=== PATIENT | female | born 1955 | race Caucasian/White ===

== ENCOUNTER → 2016-11-20 | Outpatient (CLI) | payer OTHER ==
[~2016-11-20] MED LIST: AMIT25TA9 PO; ASPI-875 PO; ATEN25TA PO; AZEL137S4 NS; CALC625T PO; ESTR1TAB24 PO; LORA10TA2 PO; PRV20T PO; [UNRECOGNIZED DRUG - CODE] PO; [UNRECOGNIZED DRUG - CODE] TOP; [UNRECOGNIZED DRUG - CODE] TP
--- OUTSIDE RECORDS SUMMARY | 2016-11-20 10:03 | XMS REPORT | Continuity of Care Document ---
Author Author [facility] Organization [facility] Address Unknown Phone Unavailable Care Team Providers Care Collet Maker Name Role Phone Martha Gomez PCP [phone] Source Comments Some departments are not documenting in the electronic medical record. If you do not see the information that you expected, contact Release of Information in the Health Information Management department at [phone] for further assistance in locating additional records.[facility] Active Allergies and Adverse Reactions Allergen Noted Date Severity Reactions Comments Aloe 10/02/2013 RASH Avocado 10/02/2013 DIARRHEA, STOMACH UPSET, NAUSEA AND VOMITING Morphine 10/02/2013 RASH Current Medications Prescription Sig. Disp. Refills Start End Date Status Date atenolol (TENORMIN) 25 mg Take 25 mg by mouth at Active tablet bedtime daily. aspirin EC 81 mg tablet Take 81 mg by mouth at Active bedtime daily. 4 weekly azelastine(+) (ASTELIN) Apply 1 Grandin to each Active 137 mcg nasal spray nostril as directed twice daily. Use in each nostril as directed loratadine(+) (ALAVERT; Take 10 mg by mouth at Active CLARITIN REDITABS) 10 mg bedtime daily. Allergy rapid dissolve tablet season estradiol (ESTRACE) 0.5 Take 0.5 mg by mouth at Active mg tablet bedtime daily. Dapsone (ACZONE) 5 % gel Apply to affected area. Active topiramate (TOPAMAX) 50 Take 1 Tab by mouth at 90 Tab 0 09/09/ Active mg tablet bedtime daily. Take with 16 25mg tab nortriptyline (PAMELOR) Take 2 Caps by mouth at 60 Cap 5 11/04/19 Active 25 mg capsule bedtime daily. 17 meloxicam (MOBIC) 15 mg Take 1 Tab by mouth 90 Tab 3 11/04/19 Active tablet daily. 17 topiramate (TOPAMAX) 25 Take 25mg tab with 50mg 90 Tab 3 11/11/19 Active mg tablet tab for total dose of 17 75mg nightly nortriptyline (PAMELOR) Take 25 mg by mouth at 11/04/19 Discontin 25 mg capsule bedtime daily. 17 ued topiramate (TOPAMAX) 25 Take 1 Tab by mouth at 30 Tab 5 06/19/20 Discontin mg tablet bedtime daily. 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 Most Recent Encounters Date Type Specialty Providers Description 11/10/2016 Refill Neurology Drake Pereyra MD 11/04/2016 Office Visit Neurology Drake Pereyra MD Migraine without aura and without status migrainosus, not intractable (Primary Dx); Chiari I malformation (HCC) 10/14/2016 Refill Neurology Drake Pereyra MD 09/09/2016 Refill Neurology Drake Pereyra MD Social History Tobacco Use Types Packs/Day Years Used Date Former Smoker Cigarettes 09/27/1978 - 09/27/1979 Smokeless Tobacco: Never Used Tobacco Cessation: Counseling Given: No Comments: Smoked for one year 35yrs ago Alcohol Use Drinks/Week oz/Week Comments Yes Once a month Last Filed Vital Signs Vital Sign Reading Time Taken Blood Pressure 132/55 11/04/2016 10:55 AM [employer] Pulse 62 11/04/2016 10:55 AM [employer] Temperature 36.5 C (97.7 F) 05/06/2015 8:58 AM CDT Respiratory Rate - - Height 1.626 m (5' 4.02") 11/04/2016 10:55 AM [employer] Weight 74.481 kg (164 lb 3.2 oz) 11/04/2016 10:55 AM [employer] Body Mass Index 28.17 11/04/2016 10:55 AM [employer] Oxygen Saturation 100% 11/04/2016 10:55 AM [employer] Plan of Care Date Type Specialty Providers Description 05/12/2017 Appointment Neurology Drake Pereyra MD [address] [facility] [address] [place] [address] [phone] (Fax) Health Maintenance Due Date Last Done Comments Hepatitis C Screening 1955 Physical (Comprehensive) 12/22/1962 Exam Pertussis Vaccine 12/22/1966 Tetanus Vaccine 12/22/1972 Cervical Cancer Screening 12/22/1976 Breast Cancer Screening 1995 Colorectal Cancer 12/22/2005 Screening Shingles Vaccine 2015 Influenza Vaccine 05/28/2016 Results from Last 3 Months Not on file
--- NOTE | 2016-11-20 18:57 | Diagnostic Imaging Report ---
Digital mammogram bilateral screening. This study was compared to the prior exams 06/15/2016, 11/08/2015, 11/01/2014, and 10/12/2013. At this time, there are no current complaints. The current study was also evaluated with a Computer Aided Detection (CAD) system. FINDINGS: The fibroglandular tissue in both breasts is heterogeneously dense. This does limit the sensitivity of this exam. Overall, there does not appear to have been any significant change when compared to the prior study. No primary or secondary sign of malignancy is noted. IMPRESSION: There is no radiographic evidence for malignancy. ACR BI-RADS Category 2: Benign findings. Result letter will be mailed to the patient. Note: At least 10% of breast cancer is not imaged by mammography. Dictated by: Dictated on workstation # [id number]
== END ==
LOC: RAD 09:59
PROVIDERS: ATTEND Internal Medicine
DX: Z12.31 Encounter for screening mammogram for malignant neoplasm of breast (principal)
CPT/HCPCS: 77067